=== PATIENT | male | born 1965 | race Caucasian/White ===

== ENCOUNTER 2020-12-14 16:37 | Emergency (ER) | payer SELFPAY ==
[2020-12-14] MEDS ORDERED: methylPREDNISolone Sod Succ/PF 125 MG/2 ML VIAL ONE (17:29)
[2020-12-14] MEDS ORDERED: Famotidine/PF 20 mg/2ml Vial ONE (17:29)
== END 2020-12-14 19:47 | disposition home or self-care (01) ==
LOC: ERS 16:37
DX: L50.0 Allergic urticaria (principal); I10 Essential (primary) hypertension; E11.9 Type 2 diabetes mellitus without complications; W57.XXXA Bitten or stung by nonvenomous insect and other nonvenomous arthropods, initial encounter
CPT/HCPCS: 96374; 96375; J2930; S0028